=== PATIENT | male | born 1950 | race Asian ===

== ENCOUNTER 2020-05-13 13:50 | Emergency (ER) | payer MEDICARE, OTHER ==
[2020-05-13] MEDS ORDERED: TETANUS/DIPHTHERIA/PERTUSSIS 0.5 ML SYRINGE IM ONE (14:07)
[2020-05-13] MEDS ORDERED: LIDOCAINE-EPINEPH-TETRACAINE 3 ML SYRINGE TOP STA (14:21)
--- NOTE | 2020-05-13 14:43 | ED Physician Documentation ---
History of Present Illness - Stated complaint Stated Complaint: HEAD INJ/FACIAL LAC - Chief complaint Chief Complaint: Trauma Hd/Nk - History obtained from History obtained from: Patient, Family - History of Present Illness Timing: Today Pain level max: 4 Pain level now: 2 - Additonal information Additional information: 69-year-old male [place] dock today when a board came loose and struck him in the face. Caused an abrasion to the forehead and the upper lip. Also has an abrasion on the left forearm. No loss of consciousness. No vomiting. 2 out of 10 pain. No neck or back pain. No numbness or tingling. No visual changes. Unknown last tetanus. Worse with movement and better with rest. P atient is not on any blood thinners Review of Systems Constitutional: denies: Fever, Chills GI: denies: Vomiting, Diarrhea Musculoskeletal: denies: Neck pain, Back pain Neurologic: denies: Confused, Altered mental status, LOC PD PAST MEDICAL HISTORY - Past Medical History Cardiovascular: Hypertension, High cholesterol Respiratory: None Neuro: Headaches Endocrine/Autoimmune: None GI: None : Other HEENT: Chronic vision loss, Chronic hearing loss Psych: None Musculoskeletal: Gout Derm: None Other Past Medical History: polycystic kidney disease - Past Surgical History Past Surgical History: Yes - Present Medications Home Medications: Ambulatory Orders Medication Instructions Recorded Confirmed Bisoprolol/Hydrochlorothiazide 1 tab ORAL DAILY 05/13/20 05/13/20 [Bisoprolol-Hctz 10-6.25 mg Tab] Pravastatin [Pravachol] 20 mg ORAL DAILY 05/13/20 05/13/20 allopurinoL [Allopurinol] 100 mg PO DAILY 05/13/20 05/13/20 - Allergies Allergies/Adverse Reactions: Allergies Allergy/AdvReac Type Severity Reaction Status Date / Time No Known Drug Allergies Allergy Verified 05/13/20 13:54 - Social History Does the pt smoke?: No Smoking Status: Never smoker Does the pt drink ETOH?: Yes Does the pt have substance abuse?: No - Immunizations Immunizations are current?: No Immunizations: TDAP >10years/unknown - POLST Patient has POLST: No PD ED PE NORMAL - Vitals Vital signs reviewed: Yes - General General: Alert and oriented X 3, No acute distress, Well developed/nourished - HEENT HEENT: PERRL, Moist mucous membranes, Other (Abrasion to the right side of the forehead, abrasion to the upper lip, one small puncture that appears through and through. No issues with the vermilion border. normal intraoral and dental exam other than one small puncture in the upper lip.) - Neck Neck: Supple, no meningeal sign - Cardiac Cardiac: RRR - Respiratory Respiratory: No respiratory distress, Clear bilaterally - Abdomen Abdomen: Normal bowel sounds, Soft, Non tender, Non distended - Back Back: No spinal TTP - Derm Derm: Warm and dry - Extremities Extremities: Other (Abrasion to the left forearm. No deformity. Moving the arm well. ) - Neuro Neuro: Alert and oriented X 3 - Psych Psych: Normal mood, Normal affect Results - Vitals Vitals: Vital Signs - 24 hr 05/13/20 05/13/20 13:54 14:05 Temperature 36.6 C Heart Rate 60 60 Respiratory 16 16 Rate Blood Pressure 158/99 H 155/91 H O2 Saturation 98 98 Oxygen O2 Source Room air PD MEDICAL DECISION MAKING - ED course Complexity details: reviewed results, re-evaluated patient, considered differential, d/w patient, d/w family ED course: 69-year-old male with mostly abrasions to the face and upper lip. These were cleansed and let was then applied. When the bleeding was controlled, they were covered with Dermabond. No evidence of fractures. No evidence of dental injury. We will have him follow-up with his doctor for further care. Head injury instructions given at bedside. GCS 15. Warnings of infection and instructions on wound care given at bedside. Also counseled on how to minimize scarring. Patient and family counseled regarding signs and symptoms for which I believe and urgent re-evaluation would be necessary. Patient with good understanding of and agreement to plan and is comfortable going home at this time This document was made in part using voice recognition software. While efforts are made to proofread this document, sound alike and grammatical errors may occur. Tdap given Departure - Departure Disposition: 01 Home, Self Care Clinical Impression: Facial abrasion Qualifiers: Encounter type: initial encounter Qualified Code(s): S00.81XA - Abrasion of other part of head, initial encounter Lip laceration Qualifiers: Encounter type: initial encounter Qualified Code(s): S01.511A - Laceration without foreign body of lip, initial encounter Condition: Good Instructions: ED Abrasion, ED Laceration Facial Skin Glue Follow-Up: your,doctor in 1 week for wound check [Other] Comments: Keep the wound clean. Return if you worsen. Do not apply any ointment as this will dissolve the glue. Return if you notice redness, swelling or drainage from the wound. You were given a Tdap today.
[2020-05-13 15:00] VITALS: BP 143/96
== END 2020-05-13 14:59 | disposition home or self-care (01) ==
LOC: ED 13:50
DX: S01.511A Laceration without foreign body of lip, initial encounter (principal); S00.81XA Abrasion of other part of head, initial encounter; S50.812A Abrasion of left forearm, initial encounter; W20.8XXA Other cause of strike by thrown, projected or falling object, initial encounter; W13.8XXA Fall from, out of or through other building or structure, initial encounter; Y93.01 Activity, walking, marching and hiking; Y92.89 Other specified places as the place of occurrence of the external cause; Z23 Encounter for immunization; I10 Essential (primary) hypertension
CPT/HCPCS: 90471; 99282; 99283